=== PATIENT | female | born 1970 | race Caucasian/White ===

== ENCOUNTER → 2016-11-06 | Outpatient (CLI) | payer OTHER ==
--- NOTE | 2016-11-06 16:32 | MR ---
MRI Lower Extremity, Left Hip History: Left hip pain. Evaluate for labral tear. ICD10 code M25.552. Technique: MRI is performed of the left hip and pelvis using a 3 [employer] [facility] MRI system. Large aedbj-au-vgv w coronal and axial imaging was obtained of the pelvis. Small gluax-pm-gizb oblique coronal, oblique axial, and sagittal imaging was obtained of the left hip. Standard imaging sequences were performed. Findings: There appears to be a subcortical cyst in the inferomedial right femoral head. No evidence for avascular necrosis of either femoral head or stress fracture of the femoral neck. No evidence for joint effusion. No evidence for sacroiliitis. There appears to be early degenerative disk disease in the lower lumbar spine. Femoral head-neck junction of the left hip appears within normal limits without evidence for an osseo us bump. No definite labral tear is visualized. No evidence of an articular cartilage defect of the f emoral head or acetabulum. Ligamentum teres is intact. Capsule is unremarkable. Mild edema is seen at the gluteus minimus tendon insertion of the left greater trochanter. Mild abnor mal signal intensity is seen at the left common hamstring tendon origin at the ischial tuberosity. Mi ld edema is also seen on large pvyow-ti-nmol images, which include the right hip of the gluteus tendo n insertion of the right greater trochanter. No evidence for soft tissue mass or abnormal fluid colle ction. No significant free fluid in the pelvis. Impression: 1. No evidence for labral tear. No evidence for underlying femoral-acetabular impingement. 2. Mild tendinopathy gluteus tendon insertion of the greater trochanter bilaterally. 3. Mild tendinopathy left common hamstring tendon origin at the ischial tuberosity. 4. Early degenerative disk disease lower lumbar spine.
== END ==
LOC: FIMAGING 13:06
PROVIDERS: ATTEND Orthopaedic Surgery
DX: M25.552 Pain in left hip (principal)

== ENCOUNTER → 2017-08-14 | Outpatient (CLI) | payer OTHER | LOC: FIMAGING 11:52 | PROVIDERS: ATTEND Specialist | DX: M24.132 Other articular cartilage disorders, left wrist (principal) ==

== ENCOUNTER → 2017-08-26 | Day surgery (SDC) | payer OTHER ==
[~2017-08-26] MED LIST: ACETAMINOPHEN 500 MG TAB ONE; ACETAMINOPHEN 500 MG TAB PO PRN; ALBUTEROL 3 ML DEYVIAL IH PRN; BUPIVACAINE 0.5% 30 ML SDV ONE; DEXAMETHASONE 4 MG/ML VIAL ONE; KETOROLAC 30 MG/1 ML SDV ONE; LIDOCAINE 1% 2 ML INJ ID PRN; LIDOCAINE 2% 100 MG/5 ML SYR ONE; LR 1,000 ML IV ONE; MIDAZOLAM 2 MG/2 ML VIAL ONE; NALOXONE HCL 0.4 MG/ML INJ IVP PRN; ONDANSETRON 4 MG/2 ML VIAL IVP PRN; PROPOFOL 200 MG/20 ML VIAL ONE; fentaNYL 100 MCG/2 ML INJ IVP PRN; fentaNYL 100 MCG/2 ML INJ ONE
--- NOTE | 2017-08-26 10:26 | PDANEPAE ---
ANE Past Medical History - Cardiovascular History Hx Hypertension: No Hx Arrhythmias: No Hx Chest Pain: No Hx Coronary Artery / Peripheral Vascular Disease: No Hx CHF / Valvular Disease: No Hx Palpitations: No - Pulmonary History Hx COPD: No Hx Asthma/Reactive Airway Disease: No Hx Recent Upper Respiratory Infection: No Hx Oxygen in Use at Home: No Hx Sleep Apnea: No Sleep Apnea Screening Result - Last Documented: Negative - Neurologic History Hx Cerebrovascular Accident: No Hx Seizures: No Hx Dementia: No - Endocrine History Hx Diabetes: No - Renal History Hx Renal Disorders: No Renal History Comment: PASSED 2 KIDNEY STONES IN 2017, UTI - Liver History Hx Hepatic Disorders: No - Neurological & Psychiatric Hx Hx Neurological and Psychiatric Disorders: No - Cancer History Hx Cancer: No - Congenital Disorder History Hx Congenital Disorders: No - GI History Hx Gastrointestinal Disorders: Yes Gastrointestinal History Comment: ACID REFLUX - Other Health History Other Health History: R wrist pain/instability. ECZEMA. FIBROMYALGIA - Chronic Pain History Chronic Pain: Yes (FIBROMYALGIA WELL CONTROLLED) - Surgical History Prior Surgeries: L knee sx 12-16. SILVESTRE KNEES. LAT RELEASE SILVESTRE KNEES. HW REMOVAL SILVESTRE KNEES. RTC R SHOULDER. L ELBOW REPAIR TENDON. APPENDECTOMY. MUCAL CYST REMOVAL 3RD DIGIT AND BONE SPURS IN DISTAL JOINT-RIGHT HAND ANE Review of Systems Review of Systems: - Exercise capacity METS (RN): 4 METS ANE Patient History - Allergies Allergies/Adverse Reactions: oxycodone HCl [From Percocet] Allergy (Verified 08/25/17 11:47) silver sulfadiazine Allergy (Verified 08/25/17 11:47) Other-Enter Comments SULFADINE CREAM Allergy (Uncoded 08/25/17 11:47) Other-Enter Comments - Home Medications Home Medications: CALCIUM 09/15/16 [Last Taken 08/23/17] Centrum Complete Multivit Tab 09/15/16 [Last Taken 08/23/17] Dhea 09/15/16 [Last Taken 08/23/17] IBUPROFEN 09/15/16 [Last Taken 08/23/17] MSM 09/15/16 [Last Taken 06/27/17] Move Free Joint Health Tablet 09/15/16 [Last Taken 08/23/17] Omeprazole 09/15/16 [Last Taken 08/26/17 07:00] Progesterone 09/15/16 [Last Taken 05/28/17] SAVELLA 09/15/16 [Last Taken 08/26/17 07:00] Turmeric 09/15/16 [Last Taken 08/23/17] VITAMIN D 09/15/16 [Last Taken 08/23/17] Vitamin C 09/15/16 [Last Taken 08/23/17] ZYRTEC 09/15/16 [Last Taken 08/26/17 07:00] Elderberry Fruit/Honey 09/17/16 [Last Taken 08/23/17] Fish Oil 09/17/16 [Last Taken 08/23/17] ZINC 09/17/16 [Last Taken 08/23/17] ACETAMINOPHEN 10/05/16 [Last Taken 06/27/17] - NPO status NPO Since - Liquids (Date): 08/25/17 NPO Since - Liquids (Time): 02:00 NPO Since - Solids (Date): 08/25/17 NPO Since - Solids (Time): 23:45 - Smoking Hx Smoking Status: Never smoked - Family Anes Hx Family Hx Anesthesia Complications: ADOPTED, SO UNKNOWN ANE Labs/Vital Signs - Vital Signs Blood Pressure: 138/85 Heart Rate: 108 Respiratory Rate: 16 O2 Sat (%): 94 Height: 155.58 cm Weight: 106.594 kg ANE Physical Exam - Airway Neck exam: FROM Mallampati Score: Class 3 Mouth exam: normal dental/mouth exam - Pulmonary Pulmonary: no respiratory distress - Cardiovascular Cardiovascular: regular rate and rhythym - ASA Status ASA Status: III ANE Anesthesia Plan Anesthesia Plan: GA w LMA
--- NOTE | 2017-08-26 10:36 | PDHPUP ---
History & Physical Update H&P update statement: This history and physical update is based on an assessment of the patient which was completed after admission or registration (within 24 hours), but prior to the surgery/procedure.
--- NOTE | 2017-08-26 11:43 | POSTOPPROG ---
Post Op Note Date of Operation: 08/26/17 Surgeon: Godfrey Barrios Early Morning: None Anesthesiologist: Vineet Dhillon Anesthesia: LMA Pre-op Diagnosis: Ligament and cartilage injury right wrist Post-op Diagnosis: same Indication: persistent right wrist pain Procedure: arthroscopy of right wrist with debridement Findings: ligament and cartilage injury withno ulnar +ve variant Inf/Abcess present in the surg proc area at time of surgery?: No Depth: Deep Incisional (Fascial) EBL: Minimal Total fluids administered: 700 Complications: none Specimen(s): none
--- NOTE | 2017-08-26 11:43 | POSTANESTH ---
Post Anesthetic Evaluation Cardiovascular Status: Similar to Pre-Op Cond Respiratory Status: Similar to Pre-op Cond. Level of Consciousness/Mental Status: Can Participate in Eval, Mildly Sleepy, Arousable Pain Control: Adequate, Prn Tx Ordered Nausea/Vomiting Control: Adequate, Prn Tx Ordered Complications Possibly Related to Anesthesia: None Noted
[2017-08-26 13:06] VITALS: PULSE 97; TEMP 97.9
--- NOTE | 2017-08-26 13:12 | GOP ---
[f rep st] OPERATIVE REPORT DATE OF OPERATION: SURGEON: Godfrey Barrios MD PREOPERATIVE DIAGNOSIS: Right wrist ligament and cartilage injury. POSTOPERATIVE DIAGNOSIS: Right wrist ligament and cartilage injury. PROCEDURE PERFORMED: Right wrist arthroscopy with triangular fibrocartilage partial excision, scapho lunate thermal ligamentodesis, dorsal capsular debridement and capsulodesis. FINDINGS: INDICATIONS: This patient had significant ongoing right wrist pain, which was found on examination a nd on MRI to be secondary to a triangular cartilage tear, and also there was evidence of injury to th e scapholunate ligament, redundancy and injury to the dorsal capsule. It was felt that at this point right wrist arthroscopy with debridement would be a good option for her. DESCRIPTION OF PROCEDURE: Under general anesthesia, the patient's right arm was prepped and draped i n the usual fashion, and through a 3-4 portal, the radiocarpal joint was inspected. The scapholunate ligament was found to be significantly stretched and there was actually a tear in the membranous por tion. There was marked inflammatory reaction at the palmar aspect of the scapholunate ligament. The dorsal capsule was significantly redundant, and there were fronds of synovium as well as redundant c apsule which appeared to be getting pinched in the joint with radiocarpal extension. The triangular cartilage had 2 tears, 1 from the periphery and 1 from the ulnar margin of the distal radius. Both t hose tears were jagged, and there was marked inflammatory reaction at the periphery. A 6U portal was made, and through that, the unstable bridge of triangular cartilage, articular disk was excised. Th e underlying ligamentum subcruentum were in good condition. The edges of the excision site were smoo thed. Palmar capsule in the area of the palmar distal radioulnar joint ligament was redundant and th at was tightened with a Mitek probe. Then, with the scope in the 6U portal, the redundancy of the do rsal capsule and dorsal portion of the scapholunate ligament was debrided, and then Mitek VAPR probe used to tighten the dorsal capsule as well as the scapholunate ligament all the way down to the durant r portion of the ligament. All articular cartilage appeared to be in good condition. No other patho logy was identified. Small fragments of cartilage were irrigated out of the wrist joint. All arthro scopic equipment was removed. 0.5% plain Marcaine instilled in the wrist. Portals were closed with horizontal mattress sutures of 5-0 Prolene. A bulky soft pressure dressing was applied, followed by palmar based fiberglass splint held in place with an Andrzej bandage. She tolerated the procedure well. There were no complications. Tourniquet deflation, which had been set at 275 mmHg, was deflated wit h immediate pinking of the digits. She was brought to the recovery area, where detailed instructions were given prior to discharge. A prescription for pain medication was not necessary. She had leftover Vicodin from a previous knee surgery. It was not felt that antibiotics were needed for this case. Followup arrangements in the o ffice for about a week postop for dressing and suture removal, splint application removed for gentle range of motion exercises for 3 additional weeks. /[id number]/MODL
[2017-08-26 13:20] VITALS: BP 116/70; RESP 16; O2SAT 96
== END | disposition home or self-care (01) ==
LOC: FSGY 09:12
PROVIDERS: ATTEND Specialist
PROC: 0LB54ZZ Excision of Right Lower Arm and Wrist Tendon, Percutaneous Endoscopic Approach (ICD-10-PCS; principal; 2017-08-26 10:30)
PROC: 0LQ Tendons, Repair (ICD-10-PCS; principal; 2017-08-26 10:30)
DX: S63.391A Traumatic rupture of other ligament of right wrist, initial encounter (principal); M24.831 Other specific joint derangements of right wrist, not elsewhere classified; X58.XXXA Exposure to other specified factors, initial encounter; M79.7 Fibromyalgia; Z87.440 Personal history of urinary (tract) infections
CPT/HCPCS: J1100; J1885; J2001; J2250; J2704; J3010

== ENCOUNTER → 2018-02-05 | Outpatient (CLI) | payer OTHER | LOC: FCPNEURO 23:30 | PROVIDERS: ATTEND Student in an Organized Health Care Education/Training Program | DX: G47.33 Obstructive sleep apnea (adult) (pediatric) (principal) ==

== ENCOUNTER → 2018-08-26 | Outpatient (CLI) | payer OTHER | LOC: FIMAGING 13:08 | PROVIDERS: ATTEND Orthopaedic Surgery | DX: S93.431A Sprain of tibiofibular ligament of right ankle, initial encounter (principal); M76.821 Posterior tibial tendinitis, right leg ==

== ENCOUNTER → 2019-04-27 | Outpatient (CLI) | payer OTHER | LOC: FIMAGING 13:28 ==